=== PATIENT | male | born 1960 | race Caucasian/White ===

== ENCOUNTER 2021-12-05 05:15 | Day surgery (SDC) | payer OTHER ==
[~2021-12-05] VITALS: Ht 160 cm; Wt 84.4 kg
[~2021-12-05 05:15] MED LIST: ASPI-1450 PO; CHOL25TA4 PO; FLUT44H IH; GABA-1181 PO; HYDR-4527 PO; HYDR-4769 PO; LOSA-381 PO; MELO-381 PO
[2021-12-05] MEDS ORDERED: SODIUM CHLORIDE 0.9% 1,000 ML IV ONE (06:00)
[2021-12-05] MEDS ORDERED: DiphenhydrAMINE HCL 50 MG CAPSULE ONE (06:07)
[2021-12-05] MEDS ORDERED: DIAZEPAM 5 MG TABLET ONE (06:07)
[2021-12-05] MEDS ORDERED: ASPIRIN 81 MG CHEWABLE TABLET ONE (06:08)
[2021-12-05] MEDS ORDERED: IOHEXOL 350 MG/ML 100 ML VIAL ONE (06:51)
[2021-12-05] MEDS ORDERED: HEPARIN SODIUM 1000 UNITS/NS 1,000 ML ONE (06:51)
[2021-12-05] MEDS ORDERED: SODIUM BICARBONATE 50 MEQ/50 ML VIAL ONE (06:51)
[2021-12-05] MEDS ORDERED: LIDOCAINE/PF 1% 30 ML VIAL ONE ×2 (06:51→09:38)
[2021-12-05] MEDS ORDERED: SODIUM CHLORIDE 0.9% 1,000 ML ONE (06:54)
[2021-12-05] MEDS ORDERED: IOHEXOL 350 MG/ML 100 ML VIAL IARTER ONE ×2 (09:15→11:00)
[2021-12-05] MEDS ORDERED: FentaNYL CITRATE PF 100 MCG/2 ML VIAL ONE ×2 (09:15→09:37)
[2021-12-05] MEDS ORDERED: LIDOCAINE 1% 30 ML/SOD BICARB 8.4% 4 ML SQ ONE (09:15)
[2021-12-05] MEDS ORDERED: HEPARIN SODIUM 1000 UNITS/NS 1,000 ML IARTER ONE (09:15)
[2021-12-05] MEDS ORDERED: MIDAZOLAM HCL 2 MG/2 ML VIAL ONE ×4 (09:16→14:31)
[2021-12-05 09:18] VITALS: BP 175/88
[2021-12-05] MEDS ORDERED: MIDAZOLAM HCL 2 MG/2 ML VIAL IVP ONE ×6 (09:45→15:00)
[2021-12-05] MEDS ORDERED: FentaNYL CITRATE PF 100 MCG/2 ML VIAL IVP ONE ×5 (09:45→15:00)
[2021-12-05] MEDS ORDERED: ASPIRIN 81 MG CHEWABLE TABLET PO ONE (10:00)
[2021-12-05] MEDS ORDERED: DiphenhydrAMINE HCL 50 MG CAPSULE PO ONE (10:00)
[2021-12-05] MEDS ORDERED: HEPARIN SODIUM,PORCINE 1,000 UNITS/ML 10 ML VIAL IVP ONE ×2 (10:00)
[2021-12-05] MEDS ORDERED: DIAZEPAM 5 MG TABLET PO ONE (10:00)
[2021-12-05] MEDS ORDERED: TICAGRELOR 90 MG TABLET ONE ×2 (10:17→18:40)
[2021-12-05 10:28] VITALS: BP 180/88
[2021-12-05] MEDS ORDERED: TICAGRELOR 90 MG TABLET PO ONE ×2 (10:30→19:00)
[2021-12-05] MEDS ORDERED: OS500 PO (10:55)
[2021-12-05] MEDS ORDERED: METO-408 PO (10:55)
[2021-12-05] MEDS ORDERED: ASPI-1444 PO (10:55)
[2021-12-05] MEDS ORDERED: NICOTINE 7 MG/24 HOUR PATCH TD ONE (13:45)
[2021-12-05] MEDS ORDERED: ATROPINE SULFATE 0.1 MG/ML 10 ML SYRINGE IVP ONE (14:37)
[2021-12-05] MEDS ORDERED: HydrALAZINE HCL 20 MG/ML VIAL ONE (14:50)
[2021-12-05] MEDS ORDERED: HydrALAZINE HCL 20 MG/ML VIAL IVP ONE ×2 (15:00)
== END 2021-12-05 19:45 | disposition home or self-care (01) ==
LOC: CATHLAB 05:15
PROVIDERS: ATTEND Internal Medicine Interventional Cardiology
DX: R94.39 Abnormal result of other cardiovascular function study (principal); I10 Essential (primary) hypertension; Z98.890 Other specified postprocedural states; Z79.899 Other long term (current) drug therapy; I25.10 Atherosclerotic heart disease of native coronary artery without angina pectoris; Z79.82 Long term (current) use of aspirin
CPT/HCPCS: 99152; 99153; 93005; 93458; 92978; C9600; C1757; C1887; C1874; J3010; J1644; J0360; J3490 ×2; J2250; Q9967; J7030; C1753; 75960; 92920; 92928; J0461